=== PATIENT | male | born 1965 | race Caucasian/White ===

== ENCOUNTER 2024-03-11 09:22 | Emergency (ER) | payer SELFPAY ==
[~2024-03-11] VITALS: Ht 185.4 cm; Wt 111.5 kg
[2024-03-11 10:24] LABS: CHLORIDE 106 MMOL/L (99-107); POTASSIUM 3.8 MMOL/L (3.5-5.1); SODIUM 140 MMOL/L (135-145)
[2024-03-11 10:31] LABS: BASOPHILS # (AUTO) 0.1 X10'3 (0-0.2); BASOPHILS % (AUTO) 1.7 % (0-1); EOSINOPHILS # (AUTO) 0.2 X10'3 (0-0.9); HEMATOCRIT 46.7 % (42.0-52.0); HEMOGLOBIN 15.7 g/dl (14.0-17.9); LYMPHOCYTES # (AUTO) 2.2 X10'3 (1.1-4.8); LYMPHOCYTES % (AUTO) 35.1 % (21-51); MEAN CORPUSCULAR HEMOGLOBIN 29.4 PG (27.0-31.0); MEAN CORPUSCULAR HGB CONC 33.6 g/dL (33.0-36.5); MEAN CORPUSCULAR VOLUME 87.5 FL (78-98); MEAN PLATELET VOLUME 8.9 FL (7.4-10.4); MONOCYTES # (AUTO) 0.5 X10'3 (0-0.9); MONOCYTES % (AUTO) 7.7 % (2-12); NEUTROPHILS # (AUTO) 3.4 X10'3 (1.8-7.7); NEUTROPHILS % (AUTO) 52.5 % (42-75); PLATELET COUNT 207 X10'3 (140-440); RED BLOOD COUNT 5.34 X10'6 (4.70-6.10); RED CELL DISTRIBUTION WIDTH 14.1 % (11.5-14.5); WHITE BLOOD COUNT 6.4 X10'3 (4.5-11.0)
[2024-03-11 10:46] LABS: ALANINE AMINOTRANSFERASE 30 U/L (12-78); ALBUMIN 3.9 G/DL (3.4-5.0); ALBUMIN/GLOBULIN RATIO 1.2 (1.1-1.5); ALKALINE PHOSPHATASE 71 IU/L (46-116); ANION GAP 7 (8-16); ASPARTATE AMINO TRANSFERASE 22 U/L (10-37); BILIRUBIN,TOTAL 0.5 MG/DL (0.1-1.0); BLOOD UREA NITROGEN 9 MG/DL (7-18); BUN/CREATININE RATIO 11.7 (10.0-20.0); CALCIUM 8.7 MG/DL (8.5-10.1); CREATININE 0.77 MG/DL (0.60-1.10); GLUCOSE 94 MG/DL (70-104); PRO BRAIN NATRIURETIC PEPTIDE 94 PG/ML (0-125); TOTAL CARBON DIOXIDE 27.2 MMOL/L (24-32); TOTAL PROTEIN 7.2 G/DL (6.4-8.2); eCRCL 117 ML/MIN; eGFR > 90 ML/MIN
[2024-03-11] MEDS ORDERED: METO-292 PO (12:39)
[2024-03-11] MEDS: metoclopramide 10mg tablet PO ONE (12:45)
[2024-03-11 12:52] VITALS: BP 128/93; PULSE 62; RESP 16; TEMP 98.2; O2SAT 96
[2024-03-11] MEDS ORDERED: SEMA1PEN3 SUBCUT (12:55)
== END 2024-03-11 12:54 | disposition home or self-care (01) ==
LOC: ER 09:25
DX: R06.6 Hiccough (principal); R94.31 Abnormal electrocardiogram [ECG] [EKG]; Z88.0 Allergy status to penicillin; Z79.899 Other long term (current) drug therapy
CPT/HCPCS: 36415; 71045; 80053; 83880; 84484; 85025; 93005; 99285

== ENCOUNTER 2024-03-14 16:35 | Emergency (ER) | payer OTHER ==
[~2024-03-14] VITALS: Ht 185.4 cm; Wt 113.0 kg
[~2024-03-14 16:35] MED LIST: METO-292 PO; SEMA1PEN3 SUBCUT
[2024-03-14] MEDS: chlorproMAZINE 25mg/ml inj. IM ONE (20:25)
[2024-03-14] MEDS ORDERED: CHLO10TA18 PO (20:39)
[2024-03-14 21:12] VITALS: BP 148/90; PULSE 71; RESP 18; TEMP 97.9; O2SAT 96
== END 2024-03-14 21:15 | disposition home or self-care (01) ==
LOC: ER 16:35
DX: R06.6 Hiccough (principal); Z88.0 Allergy status to penicillin; Z79.899 Other long term (current) drug therapy
CPT/HCPCS: 96372; 99283; J3230